=== PATIENT | female | born 2000 | race Caucasian/White ===

== ENCOUNTER → 2020-06-13 13:13 | Outpatient (CLI) | payer OTHER, SELFPAY ==
[2020-06-06 15:24] VITALS: BMI 23.9
[2020-06-13 13:57] LABS: Absolute Lymphocyte Count 1.62 X10^3/uL (0.83-4.51); Absolute Neutrophil Count 9.7 X10^3/uL (2.0-7.7); Basophil# 0.02 X10^3/uL; Basophil% 0.2 % (0-1); Eosinophil# 0.12 X10^3/uL; Hematocrit 39.2 % (37-47); Hemoglobin 12.7 g/dL (12.0-15.0); Lymphocyte # 1.62 X10^3/ul (4.0); Lymphocyte % 13.4 % (19-41); Mean Corp Hgb Conc 32.4 g/dL (32-36); Mean Corpuscular Volume 83.2 fL (81-99); Mean Platelet Vol. 9.5 fl (6.2-12.0); Monocyte% 4.1 % (0-10); NRBC Flagged by Analyzer 0 % (0-5); Neutrophil # 9.72 X10^3/uL (2.7-7.7); Neutrophil % 80.3 % (47-70); Platelet Count 251 K/mm3 (150-450); RBC Distribution Width CV 13.1 % (11.6-14.6); RBC Distribution Width SD 39.5 fl (35.1-43.9); Red Blood Count 4.71 M/mm3 (4.2-5.4); White Blood Count 12.1 K/mm3 (4.4-11.0)
[2020-06-13 14:05] LABS: Glucose Challenge Gest 1H 50g 140 mg/dL (70-140)
== END ==
PROVIDERS: Referring Provider Obstetrics & Gynecology; Visit Provider Obstetrics & Gynecology
DX: O09.93 Supervision of high risk pregnancy, unspecified, third trimester (principal); Z3A.00 Weeks of gestation of pregnancy not specified
CPT/HCPCS: 36415; 82950; 85025

== ENCOUNTER → 2020-06-18 10:11 | Outpatient (CLI) | payer OTHER, SELFPAY ==
[2020-06-06 15:24] VITALS: BMI 23.9
[2020-06-18 11:54] LABS: Glucose GTT-Gestation. Fasting 75 mg/dL (<105)
[2020-06-18 12:56] LABS: Glucose GTT-Gestational 1 Hr 114 mg/dL (<190)
[2020-06-18 14:23] LABS: Glucose GTT-Gestational 2 Hr 117 mg/dL (<165)
[2020-06-18 15:03] LABS: Glucose GTT-Gestational 3 Hr 82 L (<145)
== END ==
LOC: LAB 10:12
PROVIDERS: Referring Provider Obstetrics & Gynecology; Visit Provider Obstetrics & Gynecology
DX: Z13.1 Encounter for screening for diabetes mellitus (principal)
CPT/HCPCS: 36415; 82951; 82952

== ENCOUNTER → 2020-07-18 13:06 | Outpatient (CLI) | payer OTHER, SELFPAY ==
[2020-07-18 10:41] VITALS: BMI 26.2
== END ==
PROVIDERS: Visit Provider Obstetrics & Gynecology
DX: N89.8 Other specified noninflammatory disorders of vagina (principal)
CPT/HCPCS: 87070; 87205

== ENCOUNTER → 2020-08-01 16:57 | Outpatient (CLI) | payer OTHER, SELFPAY ==
[2020-08-01 15:59] VITALS: BMI 27.3
== END ==
PROVIDERS: Visit Provider Obstetrics & Gynecology
DX: Z34.90 Encounter for supervision of normal pregnancy, unspecified, unspecified trimester (principal)
CPT/HCPCS: 87081

== ENCOUNTER 2020-08-23 23:53 | Inpatient (IN) | payer OTHER, SELFPAY ==
[2020-08-01 15:59] VITALS: BMI 27.3
[2020-08-23 15:41] VITALS: BMI 27.8
[2020-08-23 23:37] VITALS: BMI 27.8
[2020-08-23 23:38] VITALS: BP 131/75; PULSE 92; TEMP 36.9; O2SAT 100
[2020-08-24] VITALS (65 sets, daily range): BP systolic 99–132; BP diastolic 51–76; PULSE 79–119; RESP 16; TEMP 36.4–37.4; O2SAT 96–100
[2020-08-24] MEDS: Lactated Ringers 500 ML 999 ML IV ×2 (00:10→04:30)
[2020-08-24 00:26] LABS: Absolute Lymphocyte Count 2.06 X10^3/uL (0.83-4.51); Absolute Neutrophil Count 10.6 X10^3/uL (2.0-7.7); Basophil# 0.02 X10^3/uL; Basophil% 0.1 % (0-1); Eosinophil# 0.04 X10^3/uL; Eosinophils% 0.3 % (0-5); Hematocrit 40.6 % (37-47); Hemoglobin 13.3 g/dL (12.0-15.0); Lymphocyte # 2.06 X10^3/ul (4.0); Mean Corp Hgb Conc 32.8 g/dL (32-36); Mean Corpuscular Volume 82.5 fL (81-99); Monocyte# 0.94 X10^3/uL; Monocyte% 6.8 % (0-10); NRBC Flagged by Analyzer 0 % (0-5); Neutrophil # 10.61 X10^3/uL (2.7-7.7); Neutrophil % 77.1 % (47-70); Platelet Count 289 K/mm3 (150-450); RBC Distribution Width CV 13.4 % (11.6-14.6); Red Blood Count 4.92 M/mm3 (4.2-5.4); White Blood Count 13.8 K/mm3 (4.4-11.0)
[2020-08-24] MEDS: Lactated Ringers 1,000 ML 200 ML IV ×2 (00:45→05:03)
[2020-08-24] MEDS: fentaNYL-bupivacaine (epidural) 100 ML BAG EPIDURAL ×2 (01:28→05:31)
--- NOTE | 2020-08-24 05:52 | PCM.HPOB.BLA ---
- Problem List (1) Active labor at term Status: Acute (2) Normal glucose level Status: Acute Comment: normal 3 hour (3) PUPP (pruritic urticarial papules and plaques of ) Status: Acute Comment: s/p steroids 2nd TM, continue supportive care (4) Status: Acute Qualifiers: Comment: carrier, genetic, and ntd screening declined. 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 Is patient in pain?: No Allergies penicillin G Allergy (Mild, Verified 08/23/20 15:41) other Medications fluoxetine 20 mg capsule 20 mg PO DAILY 05/07/20 [History Confirmed 08/23/20] lamotrigine 200 mg tablet 200 mg PO DAILY 05/07/20 [History Confirmed 08/23/20] blood sugar diagnostic See Rx Instructions .ROUTE .MEDSUPPLY #28 ea 06/06/20 [Rx Confirmed 08/23/20] blood-glucose meter See Rx Instructions .ROUTE .MEDSUPPLY #1 ea 06/06/20 [Rx Confirmed 08/23/20] lancets 32 gauge See Rx Instructions .ROUTE .MEDSUPPLY #28 ea 06/06/20 [Rx Confirmed 08/23/20] clotrimazole 1 % vaginal cream 1 appful VAGINAL QHS #45 g 07/19/20 [Rx Confirmed 08/23/20] Last Menstral Period: 11/26/19 Zika: Zika virus screening: Negative : No PFSH PFSH Medical History Anxiety and depression (Acute) Surgical History H/O rhinoplasty (Acute) Social History (Updated 08/23/20 @ 16:[address] 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 OB Visit RAJWINDER Calculator Estimated Delivery Date Method Current WG Current Estimate 08/28/20 Manual 39w 2d Expected Delivery Route/Plan Labor Preferences- CB/BF classes: encouraged labor support person: Med labor intervention preferences: open to all interventions pain management options preferred: desires natural, but open to epidural cut cord/dad catch: both : yes PP control planned: OCPs discussed possible routes of delivery and associated risks: discussed possible delivery modalities and possible indications for each including R/B/A of , VAVD, FAVD, and CS. questions answered. special requests: none Specific Issue/Plans flu vaccine: given 08/01 tdap vaccine:given 06/06 rhogam: NA LARC form signed: 06/22 Problem list reviewed and updated with the most current plan of care details and appropriate orders placed. Relevant counseling for the gestational age provided. Continue routine care and follow up unless otherwise noted in visit notes/problem list details Initial Weight: 125 lb Date EGA Weight BP Urine Prot Glucose FHR FuHt Pres Dilation Effaced St Visit Note 05/07/20 23w 6d 135 lb (+10 lb) 104/66 Negative Negative 150 SM HEIDI [facility], doing well overall nausea improving, but has PUPPS lesions, s/p steroid pack and is improving 06/06/20 28w 1d 136 lb 8 oz (+11 lb 8 oz) 108/58 Negative 250 g/dL 150 GP - no LOF, VB, DFM, contractions. Doing well. GP - no LOF, VB, DFM, contractions. Doing well. Missed time for GTT. Requesting home glucose monitoring. 06/22/20 30w 3d 141 lb 4 oz (+16 lb 4 oz) 110/66 Negative Negative 150 30 GP -no LOF, VB, DFM, ctx. abnormal 1h, passed 3h. LARC form signed. 07/06/20 32w 3d 145 lb 2 oz (+20 lb 2 oz) 120/62 Negative Negative 150 32 GP - no LOF, VB, DFM, ctx. Discussed labor preferences and possible routes of delivery. 07/18/20 34w 1d 148 lb (+23 lb) 102/70 140 34 SM- no vb lof good fm no regular ctx 08/01/20 36w 1d 154 lb 8 oz (+29 lb 8 oz) 128/80 Negative Negative 135 36 Cephalic 1 50 -2 GP - no LOF, VB, DFM, regular ctx. GBS today. 08/08/20 37w 1d 156 lb (+31 lb) 102/60 Negative Negative 140 37 Cephalic 1 SM- no vb lof good fm no regular ctx gbs neg 08/15/20 38w 1d 156 lb 8 oz (+31 lb 8 oz) 114/66 Negative Negative 135 38 Cephalic 2 60 -1 GP - no LOF, VB, DFM, ctx. Membranes swept today. Labor precautions reviewed. 08/23/20 39w 2d 157 lb 6 oz (+32 lb 6 oz) 130/76 Negative Negative 140 39 Cephalic 3 70 -1 GP - no LOF, VB, DFM, regular. Membranes swept. Discussed IOL at 41 weeks if no labor before then. Diagnostics Diagnostics Diagnostics Gest Glucose Tolerance MG/DL 06/18/20 Glucose 1 Hr 50 gm 140 mg/dL (70-140) 06/13/20 Hgb 12.7 g/dL (12.0-15.0) 06/13/20 Hct 39.2 % (37-47) 06/13/20 Details: HIV: Urine Culture: Sequential Screen: NIPT Screen: ROS Denies abnormal vaginal bleeding, Denies painful urination, Denies nipple discharge, Denies pelvic pain, Denies vaginal discharge, Denies vaginal odor, Denies vaginal itching Skin/Breast Denies nipple discharge Exam Const General: cooperative, healthy appearing, comfortable, no acute distress, well developed, well groomed Nutritional Appearance: average body habitus, well nourished Orientation: alert, awake, oriented x3 HENMT Head: normal to inspection, normocephalic, atraumatic Eyes Pupils: PERRL, accommodation normal Resp Effort & Inspection: normal respiratory effort, able to speak in complete sentences, symmetric chest movement Cardio Rate: regular rate GI Palpation: soft, no guarding, no masses, nontender Skin General: no rashes or lesions noted, elasticity normal, turgor normal Neuro General: alert, awake, oriented x3 Cranial Nerves: CN's II-XI intact bilaterally, sense of smell intact, PERRL, accommodation normal, EOM intact bilaterally Speech: speech normal Gait: normal gait Psych Appearance: grossly normal, well kempt Mental Status: mental status grossly normal Mood: congruent mood Affect: normal affect Speech and Movement: speech and movement normal Attitude: cooperative Thought Process: normal Thought Content: normal Judgment: judgment good Results POC Urinalysis 2 Dip (Clinic) Office Urine Glucose Negative Last Edit by Teri Rodriguez on 08/23/20 15:56 Office Urine Protein Negative Last Edit by Teri Rodriguez on 08/23/20 15:56 Assessment & Plan Problems 1. 35 weeks gestation of Z3A.35 electronic covid test ordered 07/27/2020sc (08/23/20 at 4:35) 2. Normal glucose level normal 3 hour 3. PUPP (pruritic urticarial papules and plaques of ) O26.86 s/p steroids 2nd TM, continue supportive care 4. 39 weeks gestation of Z3A.39 carrier, genetic, and ntd screening declined. obtain anatomy US from [facility], anatomy US 04/09/20 normal 5. Supervision of normal Z34.90 RAJWINDER 08/28/20 girl Emir boyfriend Med HEIDI [facility] Patient presents IAL, plan expectant management for , pitocin/AROM PRN if needed. Pain management: plans epidural. GBS negative. Management of any complications: none I have reviewed the [facility] and made any clinically relevant updates. UPDATE- I have seen the patient and performed any clinically relevant updates to the history and physical exam. Albania Gallagher MD
[2020-08-24] MEDS: Oxytocin 30 units/NS 500 ml 30 UNITS/500 ML IV.SOLN 334 UNITS IV (06:47)
--- NOTE | 2020-08-24 07:13 | PCM.OPRPT ---
Problem List (1) Active labor at term Status: Acute (2) Normal glucose level Status: Acute Comment: normal 3 hour (3) PUPP (pruritic urticarial papules and plaques of ) Status: Acute Comment: s/p steroids 2nd TM, continue supportive care (4) Status: Acute Qualifiers: Comment: carrier, genetic, and ntd screening declined. obtain anatomy US from [facility], anatomy US 04/09/20 normal (5) Supervision of normal Status: Acute Comment: RAJWINDER 08/28/20 girl Emir hendricksfrienjeancarlos Jovel HEIDI [facility] Vaginal Delivery Maternal Presentation: Active Labor Patient is a 20-year-old at 39 weeks gestation who was admitted in active labor. She made cervical change to complete dilation without augmentation. Method of Induction: Amniotomy Amniotic Membrane Rupture Type: Artificial Amniotic Fluid Description: Clear Final RAJWINDER: 08/28/20 Gestational age: 39 Weeks and 3 Days Date of Procedure: 08/24/20 - ] Pre-Operative Diagnosis: Term , active labor Post-Operative Diagnosis: Same Surgery/ Procedure Performed: Spontaneous Vaginal Delivery Type of Anesthesia: Epidural Description of Procedure: Patient began pushing and delivered the head in the CHUNG presentation. The head was delivered atraumatically and no nuchal cord was noted. The anterior and posterior shoulders delivered without complication followed by the rest of the infant and the was placed on the maternal abdomen. Delayed cord clamping was employed for approximately 60 seconds. Cord was clamped and cut and gentle traction was applied to the cord and the placenta delivered spontaneously immediately following it was noted to be intact with three-vessel cord. The perineum and vagina were inspected and a left labial laceration was noted and repaired in a running fashion using 3-0 Vicryl rapide suture. EBL was 200 cc. Patient and infant tolerated delivery well. Presentation: Vertex, CHUNG Placental Delivery Description: Spontaneous Placenta Disposition: [facility] Cord Vessel Description: 3 Vessels Cord Entanglement: None Estimated Blood Loss: 200 cc Infant A gender: Female (1 minute): 8 (5 minute): 9 Episiotomy Description: None Laceration: Vaginal Extension/lac Medications given after delivery: IV Pitocin Complications: None Multi Select Codes - Urinary/Genital Urinary/Genital CPT Codes: 96158 Vaginal Delivery [facility]
[2020-08-24] MEDS: lamoTRIgine 100 MG Tablet 200 MG PO (09:41)
[2020-08-24] MEDS: FLUoxetine 20 MG Capsule PO (09:41)
[2020-08-24] MEDS: 0.9% Saline Lock 10 ML Syringe IV (09:42)
[2020-08-24] MEDS: Acetaminophen 500 MG Tablet 1000 MG PO (16:13)
[2020-08-24] MEDS: Ibuprofen 600 MG Tablet PO ×2 (16:25→23:40)
[2020-08-25 04:13] VITALS: BP 121/62; PULSE 83; RESP 18; TEMP 36.8
[2020-08-25 08:30] VITALS: BP 110/73; PULSE 78; RESP 16; TEMP 36.3
--- NOTE | 2020-08-25 09:53 | PCM.PN.OB ---
Patient Problems: Active and Suspected Problems (Last Reviewed 08/23/20 @ 15:41 by Teri Rodriguez) Active labor at term (Acute) Normal glucose level (Acute) normal 3 hour PUPP (pruritic urticarial papules and plaques of ) (Acute) s/p steroids 2nd TM, continue supportive care (Acute) carrier, genetic, and ntd screening declined. obtain anatomy US from [facility], anatomy US 04/09/20 normal Supervision of normal (Acute) RAJWINDER 08/28/20 girl Emir boyfriend Med HEIDI [facility] Subjective: Patient doing well without complaints. Tolerating PO. Ambulating and voiding without difficulty. Breast feeding well. Denies chest pain, shortness of breath, calf pain/swelling, fevers, chills, lightheadedness. - Physical Exam Vitals/I&O's: Vital Signs Temp Pulse Resp BP Pulse Ox 98.2 F 83 18 121/62 H 98 08/25/20 04:13 08/25/20 04:13 08/25/20 04:13 08/25/20 04:13 08/24/20 11:48 Oxygen Delivery Method Room Air Weight: 157 lb Body Mass Index (BMI) 27.8 Intake and Output for Last 24 Hours 08/23/20 08/24/20 08/25/20 23:59 23:59 23:59 Intake Total 2890.00 / 2890.00 Output Total 1150 / 1150 Balance 1740.00 / 1740.00 General: Alert, Oriented x3, Cooperative, No apparent distress, Well developed, Well nourished HEENT: Atraumatic, PERRLA, EOMI, Normocephalic Neck: Supple, No JVD Lungs: Normal air movement Cardiovascular: Regular rate Abdomen: Soft, Non Tender, Non-Distended, - - fundus firm Extremities: No edema, No Calf Tenderness Neurological: Cranial nerves II-XII grossly intact, Neuro grossly intact Psych/Mental Status: Normal Affect, Appropriate Microbiology Past 72 Hours 08/24/20 00:05 Mucosa - Nose SARS-CoV-2 Antigen (Rapid) - Final Current Medications Acetaminophen (Acetaminophen 500 Mg Tablet) 1,000 mg PO Q8H PRN PRN PRN Reason: Pain Score 1-3 Last Admin: 08/24/20 16:13 Dose: 1,000 mg Documented by: Bisacodyl (Bisacodyl 10 Mg Suppository) 10 mg RECTAL UD PRN PRN Reason: If no BM Dibucaine (Dibucaine 30 Gm Tube) 1 applic TOPICAL TID PRN PRN; Protocol PRN Reason: Discomfort Fluoxetine HCl (Fluoxetine 20 Mg Capsule) 20 mg PO DAILY [facility] Last Admin: 08/24/20 09:41 Dose: 20 mg Documented by: Hydrocortisone (Hydrocortisone 2.5% Crm) 1 applic TOPICAL TID PRN PRN; Protocol PRN Reason: Discomfort Ibuprofen (Ibuprofen 600 Mg Tablet) 600 mg PO Q6H PRN PRN PRN Reason: Pain Score 1-3 Last Admin: 08/24/20 23:40 Dose: 600 mg Documented by: Lamotrigine (Lamotrigine 100 Mg Tablet) 200 mg PO DAILY [facility] Last Admin: 08/24/20 09:41 Dose: 200 mg Documented by: Methylergonovine Maleate (Methylergonovine 0.2 Mg/Ml Ampul) 0.2 mg IM X1 PRN PRN Reason: Excess bleeding/uterine atony Ondansetron HCl (Ondansetron 4 Mg/2 Ml Vial) 4 mg IV Q4H PRN PRN PRN Reason: Nausea Oxycodone HCl (Oxycodone 5 Mg Tablet) 5 - 10 mg PO Q4H PRN PRN PRN Reason: Pain Score 4-10 Senna/Docusate Sodium (Senna/Docusate Sodium 1 Tablet) 1 - 2 tablet PO DAILY PRN PRN PRN Reason: Constipation Simethicone (Simethicone 80 Mg Tablet) 80 mg PO PCHS PRN PRN Reason: Indigestion/Stomach pain Sodium Chloride (0.9% Saline Lock 10 Ml Syringe) 5 - 15 ml IV UD PRN PRN Reason: SALINE FLUSH Last Admin: 08/24/20 09:42 Dose: 10 ml Documented by: Throat Lozenges (Benzocaine/Lanolin/Aloe Vera 1 Applic Each) 1 applic TOPICAL TID PRN PRN; Protocol PRN Reason: Pain/Inflammation Last Admin: 08/24/20 18:45 Dose: 1 applic Documented by: Medical Necessity - Tobacco Use Smoking Status: Never smoker Assessment/Plan All Active Problems (Last Reviewed 08/23/20 @ 15:41 by Teri Rodriguez) Active labor at term (Acute) 35 weeks gestation of (Acute) Normal glucose level (Acute) PUPP (pruritic urticarial papules and plaques of ) (Acute) (Acute) Supervision of normal (Acute) Influenza vaccination declined (Resolved) s/p PPD # 1 1. routine post delivery care 2. breast feeding- support given 3. rh positive 4. rubella immune
--- NOTE | 2020-08-25 09:55 | DCINST_ITS ---
Discharge Diet: No Restrictions Discharge Activity: Return to Normal Activity, May not drive while taking narcotic pain medications., May Shower May resume sexual activity in: 4-6 weeks Additional Activity Instructions:: Nothing in the vagina for 4-6 weeks. You may return to work/school in 6 weeks. Call your doctor if your incision/area has: Continuous Slow Oozing, Sudden Increased Bleeding, Increased Pain/ Swelling, Increased Redness, Foul Smelling Discharge Additional Instructions: If you experience any of the following, contact your healthcare provider. * Bleeding that soaks a pad every hour for 2 hours * Fever 100.4 or higher * Unrelieved incision or abdominal pain * Swelling, redness, discharge or bleeding from your incision or episiotomy site * Your incision begins to separate * Problems urinating (including inability to urinate or burning while urinating). * Visual changes * Severe headache * Flu-like symptoms * Pain or redness in one of both of your breasts * Pain, warmth, tenderness or swelling in your legs, especially the calf area * Frequent nausea and vomiting * Symptoms of depression or anxiety If you experience any of the following, call 911 or go to the nearest Emergency Room. * Chest pain * Problems breathing * Seizure activity * Partial or complete paralysis of a body part, slurred speech, weakness or drooping of the face, or a sudden inability to walk or hold your balance Allergies/Adverse Reactions: Allergies penicillin G Allergy (Mild, Verified 08/24/20 00:11) other Medications to take at Discharge fluoxetine 20 mg capsule 20 mg PO DAILY 05/07/20 lamotrigine 200 mg tablet 200 mg PO DAILY 05/07/20 blood sugar diagnostic See Rx Instructions .ROUTE .MEDSUPPLY #28 ea 06/06/20 blood-glucose meter See Rx Instructions .ROUTE .MEDSUPPLY #1 ea 06/06/20 lancets 32 gauge See Rx Instructions .ROUTE .MEDSUPPLY #28 ea 06/06/20 clotrimazole 1 % vaginal cream 1 appful VAGINAL QHS #45 g 07/19/20 Pnv No.95/Ferrous Fum/Folic AC [ Caplet] 08/24/20 When: Call to make an appointment with your doctor in 6 weeks. If you had elevated Blood Pressure or 4th degree laceration you will need to be seen in 2 weeks. Primary Care Physician: Care Physician,No Primary [Primary Care Provider] - Test Results: Test results from this visit will be discussed in further detail at your follow- up appointment, if applicable.
[2020-08-25] MEDS: lamoTRIgine 100 MG Tablet 200 MG PO (10:12)
[2020-08-25] MEDS: FLUoxetine 20 MG Capsule PO (10:12)
[2020-08-25] MEDS: Ibuprofen 600 MG Tablet PO (10:18)
--- NOTE | 2020-08-25 11:00 | CASEMGMT ---
Social Work Assessment Labor and Delivery Unit Date of Referral: 08/24/2020 Time of Referral: 09:37 Referred By: Dr. Albania Gallagher Date of Intervention: 08/25/2020 Time of Intervention: 11:00 Reason for Referral: Mother of baby (MOB) with history of Anxiety and Depression. History obtained from: MOB, Father of baby (FOB), nursing staff, chart. Household composition: MOB, FOB, and now this , Emir Oliver have private home together. Patient's parent/guardian status: MOB and FOB (Med Oliver) have been together for 2 years. was planned and accepted. Medical History: MOB with history prior to this infant. MOB with vaginal delivery. MOB with history of Anxiety and Depression. Infant born on 08/24/2020 with apgars of 8 and 9 at 1min and 5min. birthweight of 3440g. MOB with appropriate care visits. Educational Status: MOB denies any issues with comprehension or understanding. Financial Status: MOB/FOB deny any financial concerns. FOB works full-time. 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 Supplies: MOB reports to have needed infant supplies including car seat and crib etc. Childcare/Caregiver(s): MOB to be primary caregiver of infant until returning to work. MOB has plan for appropriate childcare when MOB returns to work. Transportation: MOB denies any issues/concerns for transportation. Programs/Agencies Involved: [employer] for medical and food stamps. Children Services/Legal Issues: Denies issues/concerns. Mental Health History: MOB reports history of Anxiety and Depression. MOB reports to take Lamictal and Prozac and ?these work for me.? MOB reports history of counseling but no active counseling services. MOB follows with a psychiatrist (Dr. Norwood) for medication management. MOB reports history of suicidal attempt at the age of 15 with an inpatient psychiatric placement. MOB denies suicidal thoughts/plans/intents currently or since the age of 15. MOB attributes suicidal thoughts in the past from ?bullies at school.? This social work nurse able to engage with MOB in a conversation about depression/anxiety signs and symptoms. Substance Use History: MOB and FOB deny substance abuse/use. Maternal and Infant Drug Screens: No tox screens obtained. PHQ9: MOB triggered PHQ-9 with 12/29 score indicating no depression. MOB with appropriate and engaged affect throughout assessment/interaction. MOB with positive affect. MOB goal oriented and forward focused. MOB follows with a psychiatrist already and voices plan to inform doctor with any concerns of signs/symptoms of depression. Family/Social Stressors: Denies concerns. Support Systems: Reports support from both MOB and FOB?s families. Depression and Anxiety/Shaken Baby/Safe Sleeping: MOB provided with resources on depression/anxiety, safe sleeping, shaken baby, and [facility] resources. MOB responding appropriately to prompts for safe sleeping and shaken baby. ASSESSMENT: This social work nurse met with MOB, FOB and infant in room. Introduced self and social work nurse role. MOB agreeable to speak with this social work nurse. MOB provided verbal permission for this social work nurse to speak openly with FOB present. FOB holding throughout assessment. MOB and FOB report a connection with . MOB gazing at infant often throughout assessment. MOB denies any home going concerns. FOB to have 6 weeks off work with MOB and infant. PLAN: Infant to discharge to home with MOB and FOB. No other services requested or indicated. Lina DURAND, CASSIE
== END 2020-08-25 12:00 | disposition home or self-care (01) | DRG 807 ==
LOC: MTDU 23:54 → WP 23:54
PROVIDERS: Admitting Provider Obstetrics & Gynecology; Referring Provider Obstetrics & Gynecology; Visit Provider Obstetrics & Gynecology
DX: O26.86 Pruritic urticarial papules and plaques of pregnancy (PUPPP) (principal); Z37.0 Single live birth; Z3A.39 39 weeks gestation of pregnancy; O70.0 First degree perineal laceration during delivery
CPT/HCPCS: 59025; 59050; 85025; 86850; 86900; 86901; 87426; 87635; 99218; C9803; J7120; A4216; G0378; U0003